=== PATIENT | female | born 1990 | race African-American/Black ===

== ENCOUNTER → 2017-04-14 | Emergency (ER) | payer SELFPAY ==
[~2017-04-14] VITALS: Ht 172.7 cm; Wt 51.2 kg
[~2017-04-14] MED LIST: AMOX500C2 PO; HYDR-906 PO; HYDROCODONE/APAP (5/325) TAB PO ONE; IBUPROFEN 600 MG TAB PO ONE; NAPR-688 PO
[2017-04-14 11:41] VITALS: Ht 172.7 cm; Wt 51.2 kg
--- NOTE | 2017-04-14 15:48 | ERD ---
ER Documentation Chief Complaint Chief Complaint has ear pain and the inside of her mouth in pain HPI This 27-year-old male presents with pain that was on the right side of her jaw but is now on the left. Also radiates into her neck and she has it in her ear as well. She has no dental pain has had no fevers or chills. She feels as though the jaw is slightly swollen. She has difficulty opening her mouth. ROS All systems reviewed and are negative except as per history of present illness. Medications Home Meds Active Scripts Amoxicillin* (Amoxicillin*) 500 Mg Cap, 500 MG PO TID for 7 Days, CAP Prov:EMMY BEARD DO 04/14/17 Naproxen* (Naproxen*) 500 Mg Tablet, 500 MG PO BID Y for PAIN, #20 TAB Prov:EMMY BEARD DO 04/14/17 Hydrocodone/Acetaminophen (Cherokee 5-325 Tablet) 1 Each Tablet, 1 EACH PO Q6, #24 TAB Prov:EMMY BEARD DO 04/14/17 Allergies Allergies: Coded Allergies: Penicillins (Unverified Allergy, Unknown, 04/14/17) PMhx/Soc Medical and Surgical Hx: pt denies Surgical Hx Hx Alcohol Use: Yes (socially) Hx Substance Use: No Hx Tobacco Use: No Physical Exam Vitals Vital Signs Date Time Temp Pulse Resp B/P Pulse Ox O2 Delivery O2 Flow Rate FiO2 04/14/17 11:41 98.0 88 18 117/69 99 Physical Exam Const: [] Mild distress, appears uncomfortable Head: Atraumatic Eyes: Normal Conjunctiva ENT: Normal External Ears, Nose and Mouth. Neck: Full range of motion.. Mild tenderness to palpation of anterior right neck with tender lymph node that is 1 cm and mobile at the jugular hyoid area. Left tympanic membrane is obscured by cerumen. Right tympanic membranes within normal limits. Skin: No petechiae or rashes Ext: No cyanosis, or edema Neur: Awake and alert and oriented 3, no focal deficits Psych: Normal Mood and Affect Results 24 hrs Current Medications Medications (Trade) Dose Ordered Sig/Marjan Route PRN Reason Start Time Stop Time Status Last Admin Dose Admin Acetaminophen/ Hydrocodone Bitart (Cherokee (5/325)) 1 tab ONCE ONCE PO 04/14/17 13:00 04/14/17 13:01 DC 04/14/17 12:51 Ibuprofen (Motrin) 600 mg ONCE ONCE PO 04/14/17 13:00 04/14/17 13:01 DC 04/14/17 12:51 Procedures/MDM TMJ arthritis with current TMJ syndrome. Patient was given a Cherokee and ibuprofen which allowed her to move her jaw better. Still does have pain. Unable to completely rule out infection although have lower suspicion I am going to discharge with amoxicillin. CT is negative for any acute process of her TMJ arthritis. No acute emergencies suspected. I am going to discharge her with ENT follow-up as well as Cherokee naproxen. Strict return precautions to the ER. ET soft tissue neck interpretation: TMJ arthritis that is mild without abnormal fluid collection or apparent soft tissue infection. Departure Diagnosis: Primary Impression: TMJ (temporomandibular joint syndrome) Additional Impression: TMJ arthritis Condition: Stable Patient Instructions: Tmj Syndrome Additional Instructions: Call your primary care doctor TOMORROW for a referral to an ENT doctor. See the doctor sooner or return here if your condition worsens before your appointment time. EMMY BEARD DO Apr 14, 2017 15:48
--- NOTE | 2017-04-14 16:55 | RADRPT ---
PROCEDURE: CT soft tissue neck without contrast. CLINICAL INDICATION: Left temporomandibular joint pain radiating to left ear and neck TECHNIQUE: The study was performed utilizing a GE 64-slice multidetector CT scanner. Direct thin s ection helically acquired axial sections were obtained through the neck without contrast. Coronal a nd sagittal reformations were obtained. The images were reviewed on a PACS workstation. The total CT DIvol is 8.68 mGy and the DLP is 237.56 mGy-cm. One the three dose reduction techniques were used during the CT examination: 1) Automated exposure control 2) Adjustment of the mA +/or kV according to patient's size 3) Use of iterative reconstruction technique COMPARISON: None available FINDINGS: The visualized imaged portions of the brain are normal. The bilateral orbits are normal. The bilater al paranasal sinuses, mastoid air cells and middle ear cavities are clear. The nasopharynx, oropharynx, and oral cavity are normal. The vallecula, hypopharynx, supra glottis, glottis and subglottic neck are normal. The visualized soft tissues of the neck are normal. The bila teral thyroid lobes and the lungs are clear. No evidence for acute fractures or dislocations are present. The bilateral temporal mandibular joint s are intact. Mild flattening is present compatible with degenerative changes. The visualized cervic al spine demonstrate straightening of the normal cervical lordosis with mild kyphotic apex at C5-6. Bilateral right greater than left sheridan bullosa is present. The bilateral sublingual glands, submandibular glands, and parotid glands are normal. No definite ev idence for pathologic lymphadenopathy is present. No evidence for lytic or blastic lesions are noted . IMPRESSION: 1. No evidence for acute fractures or dislocations. 2. 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 3. Straightening of the normal cervical lordosis with kyphotic apex at C5-6. RPTAT: HDC .Siena Prabhakar MD, Date Time Electronically viewed and signed by .Siena Prabhakar MD, on 04/14/2017 13:44 .C/
== END | disposition home or self-care (01) ==
LOC: FTE 11:35
DX: M26.621 Arthralgia of right temporomandibular joint (principal)
CPT/HCPCS: 70490